=== PATIENT | male | born 1945 | race Hispanic/Latino ===

== ENCOUNTER → 2018-02-28 | Day surgery (SDC) | payer MEDICARE ==
[2018-02-27 12:30] LABS: BASOPHILS # (AUTO) 0.1 (0.0-0.1); BASOPHILS % 0.5 % (0.0-1.0); EOSINOPHILS # (AUTO) 0.1 (0.0-0.4); EOSINOPHILS % 0.6 % (0.0-6.0); HEMATOCRIT 40.1 % (38.2-49.6); HEMOGLOBIN 12.9 g/dL (14.0-18.0); LYMPHOCYTES # (AUTO) 1.7 (1.0-3.2); MEAN CORPUSCULAR HEMOGLOBIN 27.4 pg (28-32); MEAN CORPUSCULAR HGB CONC 32.2 g/dL (31-35); MEAN CORPUSCULAR VOLUME 85.1 fL (81-99); MONOCYTES # (AUTO) 1.1 (0.2-0.8); MONOCYTES % 10.4 % (4.4-11.3); NEUTROPHILS # (AUTO) 7.8 (2.1-6.9); PLATELET COUNT 266 x10e3/uL (140-360); RED BLOOD COUNT 4.71 x10e6/uL (4.3-5.7); RED CELL DISTRIBUTION WIDTH 14.7 % (11.7-14.4)
[2018-02-27 12:47] LABS: INR 1.17
[2018-02-27 12:54] LABS: ANION GAP 14.4 mmol/L (8-16); CALCIUM 9.9 mg/dL (8.4-10.2); CREATININE, SERUM 1.35 mg/dL (0.72-1.25); POTASSIUM 4.4 mmol/L (3.5-5.1)
--- NOTE | 2018-02-27 14:12 | Diagnostic Imaging Report ---
PROCEDURE: Frontal and lateral views of the chest. COMPARISON: None. 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 Lungs: The lungs are well inflated. Ill-defined patchy airspace opacity in the right upper lung and to a lesser degree right lower lung. The left lung is clear. Pleura: There is no pleural effusion or pneumothorax. Heart and mediastinum: Enlarged cardiac silhouette. Mild central pulmonary venous congestion. Atherosclerotic calcification of the aortic arch. Bones: No acute bony abnormalities. Degenerative changes in the thoracic spine. IMPRESSION: 1. ill-defined patchy opacities in the right upper and lower lung. These may represent pneumonia, in the appropriate clinical setting. Primary bronchogenic neoplasm is less likely, however, could be considered, particularly if the patient is high risk/history of smoking. No prior films are available for comparison. Recommend followup chest, PA and lateral 4-6 weeks after appropriate treatment. Alternatively, a contrast-enhanced chest CT may be obtained for further evaluation. 2. Enlarged heart silhouette with mild central pulmonary venous congestion. Leland Willett M.D. Dictated by: Leland Willett M.D. on 02/27/2018 at 14:15 Electronically approved by: Leland Willett M.D. on 02/27/2018 at 14:15
[~2018-02-28] VITALS: Ht 175.3 cm; Wt 99.8 kg
[~2018-02-28] MED LIST: AMIODARONE HCL200 MG PO; ASPIR 8181 MG PO; BUMETANIDE1 MG PO; CARVEDILOL12.5 MG PO; CILOSTAZOL100 MG PO; HUMALOG100 UNIT/3 SQ; LIDOCAINE 1% W/EPINEPHRINE 20 ML VIAL ONE; PRADAXA75 MG PO; TRESIBA SQ; VITAMIN B-121000 MCG PO; VITAMIN D10000 UNIT PO; VITAMIN D5000 UNIT PO
[2018-02-28 06:59] VITALS: BP 176/71
[2018-02-28 07:30] VITALS: BP 172/73
--- NOTE | 2018-02-28 07:59 | Operative Report ---
DATE OF PROCEDURE: February 28, 2018 PROCEDURE: Implantable loop recorder insertion. COMPLICATIONS: None. INDICATIONS: Paroxysmal atrial fibrillation. TECHNIQUE: The patient was draped and prepped in the usual fashion. The left subclavicular area was anesthetized with lidocaine. A loop recorder was inserted subcutaneously without difficulty. The incision was closed using Dura-Cronin glue. There were no complications. CONCLUSIONS: Successful insertion of implantable loop recorder without complications. Job#: [id number]
== END | disposition home or self-care (01) ==
LOC: CATH LAB 06:19
PROVIDERS: ATTEND Internal Medicine Cardiovascular Disease
DX: I48.0 Paroxysmal atrial fibrillation (principal); I10 Essential (primary) hypertension; E11.9 Type 2 diabetes mellitus without complications; Z01.810 Encounter for preprocedural cardiovascular examination; Z01.812 Encounter for preprocedural laboratory examination; Z01.818 Encounter for other preprocedural examination; Z79.82 Long term (current) use of aspirin; Z79.4 Long term (current) use of insulin; Z79.02 Long term (current) use of antithrombotics/antiplatelets; Z68.31 Body mass index [BMI] 31.0-31.9, adult; Z87.891 Personal history of nicotine dependence; Z82.49 Family history of ischemic heart disease and other diseases of the circulatory system
CPT/HCPCS: 33282; 36415; 71046; 80048; 85025; 85610; 93005; C1764

== ENCOUNTER 2020-07-19 14:59 | Emergency (ER) | payer MEDICARE ==
[~2020-07-19] VITALS: Ht 175.3 cm; Wt 99.8 kg
[~2020-07-19 14:59] MED LIST changes: -LIDOCAINE 1% W/EPINEPHRINE 20 ML VIAL ONE
--- NOTE | 2020-07-19 15:00 | NUR ---
DR. WINTER IN TRIAGE TALKING WITH PATIENT. WANTS PATIENT TO CONTINUE HIS CARE AND FOLLOW UP WITH DR. DOWELL FOR REFERAL TO WOUND CARE
--- NOTE | 2020-07-19 15:26 | NUR ---
CULTURAL LINK ROSITA Santiago ([id number])
--- NOTE | 2020-07-19 15:30 | Emergency Department Note ---
History of Present Illnes History of Present Illness Chief Complaint: Skin Rash or Abscess History of Present Illness This is a 74 year old male 3 AREAS OF ULCERATION TO FRONT OF LEFT LOWER LEG. STATES 10 DAYS AGO HE DROPPED A WOODEN FENCE ON IT. [address] DOWELL PRESCRIBED BACTROBAN OINTMENT TO THE AREA. 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 Any updates have been documented here. Past Medical History Recent Fever: No Clinical Suspicion of Infectio: No New/Unexplained Change in Ment: No Past Medical History: Hypertension, Diabetes, MA, CAD, Hyperlipedemia Other Surgery: CARDIAC STENT X 2 Social History Smoking Cessation: Never Smoker Counseling Performed: No Alcohol Use: Occasional Any Illegal Drug Use: No TB Exposure/Symptoms: No Physically hurt or threatened: No Family History Family history of heart diseas: No Other Any Pre-Existing Lines (PICC,: No Review of Systems Review of Systems Constitutional: Reports no symptoms EENTM: Reports no symptoms Cardiovascular: Reports no symptoms Respiratory: Reports no symptoms Gastrointestinal: Reports no symptoms Genitourinary: Reports no symptoms Musculoskeletal: Reports no symptoms Integumentary: Reports as per HPI Neurological: Reports no symptoms Psychological: Reports no symptoms Endocrine: Reports no symptoms Hematological/Lymphatic: Reports no symptoms Physical Exam Related Data Allergies: Coded Allergies: No Known Drug Allergies (Verified Allergy, Unknown, 02/27/18) Triage Vital Signs Vital Signs Date Time Temp Pulse Resp B/P (MAP) Pulse Ox O2 Delivery O2 Flow Rate FiO2 07/19/20 15:03 97.8 66 18 145/55 99 Room Air Vital signs reviewed: Yes Physical Exam CONSTITUTIONAL Constitutional: Present well-developed, Present well-nourished HENT HENT: Present normocephalic, Present atraumatic, Present oropharynx clear/moist, Present nose normal HENT L/R: Present left ext ear normal, Present right ext ear normal EYES Eyes: Reports PERRL, Reports conjunctivae normal NECK Neck: Present ROM normal PULMONARY Pulmonary: Present effort normal, Present breath sounds normal CARDIOVASCULAR Cardiovascular: Present regular rhythm, Present heart sounds normal, Present capillary refill normal, Present normal rate GASTROINTESTINAL Abdominal: Present soft, Present nontender, Present bowel sounds normal GENITOURINARY Genitourinary: Present exam deferred SKIN Skin: Present warm, Present other (MILD CELLULITIS LEFT LOWER LEG WITH 3 SMALL ULCERATIVE LESIONS ANT TIBIA AREA WITH NO PURULENT DS/C) MUSCULOSKELETAL Musculoskeletal: Present ROM normal NEUROLOGICAL Neurological: Present alert, Present oriented x 3, Present no gross motor or sensory deficits PSYCHOLOGICAL Psychological: Present mood/affect normal, Present judgement normal Assessment & Plan Medical Decision Making MDM MILD CELLULITIS Reassessment Reassessment DC HOME, CLINDA/DOXY, F/U PCP AND WOUND CARE CLINIC Assessment & Plan Final Impression: (1) Cellulitis (2) Non-healing wound Depart Disposition: HOME, SELF-CARE Last Vital Signs Date Time Temp Pulse Resp B/P (MAP) Pulse Ox O2 Delivery O2 Flow Rate FiO2 07/19/20 15:03 97.8 66 18 145/55 99 Room Air Home Meds Reported Medications Dabigatran Etexilate Mesylate (PRADAXA) 75 Mg Capsule, 75 MG PO BID 02/27/18 [Tresiba] No Conflict Check, 50 UNITS SQ HS 02/27/18 Insulin Lispro (HUMALOG) 100 Unit/1 Ml Insuln.pen, 10 UNITS SQ BID 02/27/18 Cyanocobalamin (VITAMIN B-12) 1,000 Mcg Tab, 500 MCG PO DAILY, #30 TAB 02/27/18 Cholecalciferol (Vitamin D3) (VITAMIN D) 10,000 Unit Capsule, 67736 UNITS PO UD 02/27/18 Cholecalciferol (Vitamin D3) (VITAMIN D) 5,000 Unit Tablet, 5000 UNIT PO 02/27/18 Carvedilol (CARVEDILOL) 12.5 Mg Tablet, 12.5 MG PO BID, #60 TAB 02/27/18 Cilostazol (CILOSTAZOL) 100 Mg Tablet, 100 MG PO BID, #30 TAB TAKE 1 TABLET 30 MINUTES BEFORE OR 2 HOURS AFTER BREAKFAST AND DINNER ORALLY TWICE A DAY 02/27/18 Aspirin (ASPIR 81) 81 Mg Tablet.dr, 81 MG PO DAILY 02/27/18 Amiodarone Hcl (AMIODARONE HCL) 200 Mg Tablet, 200 MG PO BID 02/27/18 Bumetanide (BUMETANIDE) 1 Mg Tablet, 1 MG PO DAILY, #30 TAB 02/27/18 RUBY WINTER MD Jul 19, 2020 15:30
--- OUTSIDE RECORDS SUMMARY | 2020-07-19 15:42 | XMS REPORT | Continuity of Care Document ---
Author Author [facility] t Organization [facility] Address [address] [place] [address] Phone Unavailable Care Team Providers Care Aging Room Hand Name Role Phone LAYA GARCIAchetnarashida Unavailable Payers Payer Name Policy Type Policy Number Effective Date Expiration Date S ource Problems Condition Name Condition Details Condition Category Status Onset Date Resolution Date Last Treatment Date Treating Clinician Comments Source [facility]entiary current use of insulin meterman current use of insulin Active Diagnosis 06/09/2017 [id number] Diagnosis Active 2017-06-09 02:48:02 Bandar Lambert Mixed hyperlipidemia Mixe d hyperlipidemia Active Problem 06/09/2017 [id number] Problem Active 2017-06-09 02:48:02 Gaby Lambert Type 2 diabetes mellitus without complic ation, 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 Type 2 diabetes mellitus without complication, 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 Active Diagnosis 06/09/2017 [id number] Diagnosis Active 2017-06-09 02:48:02 Gaby Lambert Heart failure, unspecified heart failure chronicity, unspecified heart failure type Heart failure, u nspecified heart failure chronicity, unspecified heart failure type Active Problem 06/09/2017 [id number] Problem Active 2017-06-09 02:48:02 Gaby Lambert 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 Active Problem 06/09/2017 [id number] Problem Active 2017-06-09 02:48:02 [facility] Chronic systolic heart failure Chronic systolic heart failure Active Problem 06/09/2017 [id number] Problem Active 2017-06-09 02:48:02 [facility] HTN (hypertension), benign HTN (hypertension), benign Active Problem 06/09/2017 [id number] Problem Active 2017-06-09 02:48:02 [facility] Atrial fibrillation, unspecified type Atrial fibrillation, unspecified type Active Problem 06/09/2017 [id number] Problem Active 2017-06-09 02:48:02 Juan arita [facility] Allergies, Adverse Reactions, Alerts Allergy Name Allergy Type Status Severity Reaction(s) Onset Date Inacti ve Date Treating Clinician Comments Source No Known Allergies DA Active U 2018-04-24 00:00:00 [facility] N.K.D.A. N.K.D.A. Active Info Not Available 2017-05-24 00:00:00 [facility] Medications Ordered Medication Name Filled Medication Name Start Date Stop Da te Current Medication? Ordering Clinician Indication Dosage Frequency Signature (SIG) Comments Components Source Humalog 2017-06-09 02:48:02 Yes Adnan Brien Injec t 15u [facility] Aspir-81 2017-06-09 02:48:02 Yes Adnan Brien 1 ta blet [facility] Pravastatin Sodium 2017-06-09 02:48:02 Yes Adnan Brien 1 tablet [facility] Amiodarone HCl 2017-06-09 02:48:02 Yes Adnan Brien 1 tablet [facility] Carvedilol 2017-06-09 02:48:02 Yes Adnan Brien 1 tablet [facility] Vitamin B12 2017-06-09 02:48:02 Yes Adnan Brien 2 tablets [facility] Vitamin D3 2017-06-09 02:48:02 Yes Adnan Brien 1 capsule [facility] Bumetanide 2017-06-09 02:48:02 Yes Adnan Brien 1 tablet [facility] Tresiba FlexTouch 2017-06-09 02:48:02 Yes Adnan Brien Inject 60u [facility] Eliquis 2017-05-24 00:00:00 Yes Adnan Brien 1 tab let [facility] Vital Signs Vital Name Observation Time Observation Value Comments Source Weight 2017-05-24 15:15:00 [facility] Height 2017-05-24 15:15:00 [facility] Temperature Oral (F) 2017-05-24 15:15:00 98.1 F [facility] Heart Rate 2017-05-24 15:15:00 [facility] Diastolic (mm Hg) 2017-05-24 15:15:00 [facility] Systolic (mm Hg) 2017-05-24 15:15:00 [facility] Procedures This patient has no known procedures. Encounters Start Date/Time End Date/Time Encounter Type Admission Type [facility] Care Department Encounter ID Source 2017-05-24 10:15:00 2017-05-24 10:15:00 Outpatient [facility] [id number] [employer] Results Test Description Test Time Test Comments Results Result Comments Source CHEST 2 VIEWS 2018-02-27 14:15:00 [place] [id number] Patient Name: TONI RUIZ MR #: [id number] : 1945 Age/Sex: 72/M Req #: [id number] Adm Physician: Ordered by: LAYA GARCIA MD Report #: [id number] Location: BLOCK CLEANER Room/Bed: Procedure: [id number] DX/CHEST 2 VIEWS Exam Date: 02/27/18 Exam Time: 1325 REPORT STATUS: Signed PROCEDURE: Frontal and lateral views of the chest. COMPARISON: None. 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 Lungs: The lungs are well inflated. Ill-defined patchy airspace opacity in the right upper lung and to a lesser degree right lower lung. The left lung is clear. Pleura: There is no pleural effusion or pneumothorax. Heart and mediastinum: Enlarged cardiac silhouette. Mild central pulmonary venous congestion. Atherosclerotic calcification of the aortic arch. Bones: No acute bony abnormalities. Degenerative changes in the thoracic spine. IMPRESSION: 1. ill- defined patchy opacities in the right upper and lower lung. These may represent pneumonia, in the appropriate clinical setting. Primary bronchogen ic neoplasm is less likely, however, could be considered, particularly if the patient is high risk/history of smoking. No prior films are available for comparison. Recommend followup chest, PA and lateral 4-6 weeks after appropriate treatment. Alternatively, a contrast-enhanced chest CT may be obtained for further evaluation. 2. Enlarged heart silhouette with mild central pulmonary venous congestion. Babatunde Willett M.D. Dictated by: Babatunde Willett M.D. on 02/27/2018 at 14:15 Electronically approved by: Babatunde Willett M.D. on 02/27/2018 at 14:15 Dictated By: BABATUNDE WILLETT MD 1415 Transcribed By: EVETTE on 02/27/18 1415 COPY TO: LAYA GARCIA MD
--- OUTSIDE RECORDS SUMMARY | 2020-07-19 15:42 | XMS REPORT | Continuity of Care Document ---
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16.840.1.684192.4.391.11.2 2568 HTN (hypertension), benign Act maggie Problem 02/2017 2.16.840.1.252222.4.391.11.2 2568 Atrial fibrillation, unspecified type Active Problem 02/2017 2.16.840.1.044952.4.391.11.2 2568 Medications Medication Details Route Status Patient Instructions Ordering Provider Order Date Source Eliquis 1 tablet Orally Active 5 MG Orally twice a day (bid) Brien 05/24/2017 2.16.840.1.235142.4.391.11.36128 Humalog Inject 15u Subcutaneous Active 100 UNIT/ML Subcutaneou s tid before meals Brien 2.16.840.1.434873.4.391..14996 Aspir-81 1 tablet Orally Active 81 MG Orally Once a day Brien .840.1.661072.4.391.. Pravastatin Sodium 1 tablet Orally Active 20 MG Orally Once a day Brien 2.840.1.393712.4.391.. Amiodarone HCl 1 tablet Orally Active 400 MG Orally Once a da y Brien 2.840.1.645672.4.391.. Carvedilol 1 tablet Orally Active 6.25 MG Orally twice a day (bid) Brien 2.840.1.755309.4.391.. Vitamin B12 2 tablets Orally Active 500 MCG Orally Once a d ay Brien 2.840.1.760056.4.391.. Vitamin D3 1 capsule Orally Active 5000 UNIT Orally Once a day Brien .840.1.899051.4.391. Bumetanide 1 tablet Orally Active 1 MG Orally twice a day (bid) Brien 2.840.1.470376.4.391.. Tresiba FlexTouch Inject 60u Subcutaneous Active 200 UNIT/ML Subcutaneous daily Brien 2.840.1.541593.4.391..76770 Allergies, Adverse Reactions, Alerts Substance Category Reaction Severity Reaction type Status Date Reported Comments Source N.K.D.A. Adverse Reaction Info Not Available Adverse Reaction Active 05/24/2017.840.1.097749.4.391.11.2 2568 Immunizations No Data Provided for This Section Results No Data Provided for This Section Pathology Reports No Data Provided for This Section Diagnostic Reports No Data Provided for This Section Consultation Notes No Data Provided for This Section Discharge Summaries No Data Provided for This Section History and Physicals No Data Provided for This Section Vital Signs Vital Sign Value Date Comments Source Weight 201 05/24/2017 2.840.1.506760.4.391.11.2 2568 Height 67.0 05/24/2017 2.840.1.984343.4.391.11.2 2568 Temperature Oral (F) 98.1 F 05/24/2017 2.16.840.1.345513.4.391.11.41307 Heart Rate 67 05/24/2017 2.16.840.1.836601.4.391.11.2 2568 Diastolic (mm Hg) 52 05/24/2017 2.16.840.1.408044.4.391.11.22480 Systolic (mm Hg) 96 05/24/2017 2.16.840.1.837746.4.391.11.2 2568 Encounters No Data Provided for This Section Procedures No Data Provided for This Section Assessment and Plan No Data Provided for This Section Plan of Care No Data Provided for This Section Social History No Data Provided for This Section Family History No Data Provided for This Section Advance Directives No Data Provided for This Section Functional Status No Data Provided for This Section
== END 2020-07-19 15:23 | disposition home or self-care (01) ==
LOC: ER 15:15
DX: L03.116 Cellulitis of left lower limb (principal); S81.802D Unspecified open wound, left lower leg, subsequent encounter; W22.8XXD Striking against or struck by other objects, subsequent encounter; I10 Essential (primary) hypertension; E11.9 Type 2 diabetes mellitus without complications; E78.5 Hyperlipidemia, unspecified; I25.10 Atherosclerotic heart disease of native coronary artery without angina pectoris; I25.2 Old myocardial infarction
CPT/HCPCS: 99282

== ENCOUNTER 2023-12-27 14:37 | Inpatient (IN) | payer MEDICARE ==
[~2023-12-27] VITALS: Ht 177.8 cm; Wt 97.5 kg
[~2023-12-27 14:37] MED LIST changes: +CEFDINIR300 MG PO
[2023-12-27] MEDS ORDERED: SODIUM CHLORIDE FLUSH 10 ML SYR IV PRN (15:15)
[2023-12-27 15:20] LABS: BASOPHILS % 0.4 % (0.0-1.0); EOSINOPHILS # (AUTO) 0.1 (0.0-0.4); EOSINOPHILS % 1.5 % (0.0-6.0); HEMATOCRIT 37.5 % (38.2-49.6); HEMOGLOBIN 12.2 g/dL (14.0-18.0); LYMPHOCYTES # (AUTO) 2.7 (1.0-3.2); LYMPHOCYTES % 28.5 % (18.0-39.1); MEAN CORPUSCULAR HEMOGLOBIN 27.2 pg (28-32); MEAN CORPUSCULAR HGB CONC 32.5 g/dL (31-35); MEAN CORPUSCULAR VOLUME 83.5 fL (81-99); MONOCYTES # (AUTO) 0.8 (0.2-0.8); MONOCYTES % 8.5 % (4.4-11.3); NEUTROPHILS # (AUTO) 5.7 (2.1-6.9); NEUTROPHILS % 60.9 % (38.7-80.0); PLATELET COUNT 244 x10e3/uL (140-360); RED BLOOD COUNT 4.49 x10e6/uL (4.3-5.7); RED CELL DISTRIBUTION WIDTH 15.7 % (11.7-14.4); WHITE BLOOD COUNT 9.42 x10e3/uL (4.8-10.8)
[2023-12-27 15:37] LABS: INR 0.95; PROTHROMBIN TIME 13.4 seconds (11.9-14.5)
[2023-12-27 15:38] LABS: PARTIAL THROMBOPLASTIN TIME 34.3 seconds (23.8-35.5)
[2023-12-27 15:48] LABS: ALBUMIN 3.7 g/dL (3.5-5.0); ALBUMIN/GLOBULIN RATIO 0.9 (0.8-2.0); ANION GAP 14.8 mmol/L (8-16); BILIRUBIN,TOTAL 0.6 mg/dL (0.2-1.2); CALCIUM 9.1 mg/dL (8.4-10.2); CREATININE, SERUM 1.41 mg/dL (0.72-1.25); POTASSIUM 4.8 mmol/L (3.5-5.1); TOTAL PROTEIN 7.7 g/dL (6.5-8.1)
[2023-12-27 15:54] LABS: TROPONIN I 0.007 ng/mL (0-0.300)
[2023-12-27] MEDS ORDERED: ASPIRIN 81 MG ENTERIC COATED PO ONE (16:24)
[2023-12-27] MEDS: ASPIRIN 81 MG CHEW TAB PO ONE (16:26)
[2023-12-27] MEDS ORDERED: ASPIRIN 81 MG CHEW TAB ONE (16:28)
[2023-12-27] MEDS ORDERED: SODIUM CHLORIDE 0.9% 100 ML ONE (16:32)
[2023-12-27] MEDS ORDERED: IOPAMIDOL 370 MG/ML 100 ML INFUS..BTL INJ ONE (16:33)
[2023-12-27] MEDS ORDERED: ONDANSETRON HCL INJ 2MG/ML 2ML 2 MG/ML VIAL IV PRN (17:45)
[2023-12-27] MEDS ORDERED: SODIUM CHLORIDE FLUSH 10 ML SYR INJ PRN (17:45)
[2023-12-27] MEDS ORDERED: CLOPIDOGREL BISULFATE 75 MG TAB ONE (19:03)
[2023-12-27] MEDS: CLOPIDOGREL BISULFATE 75 MG TAB PO ONE (19:05)
[2023-12-27 20:34] VITALS: BP 165/44; PULSE 70; RESP 20; TEMP 98; O2SAT 100
[2023-12-27 21:00] VITALS: BP 176/68; PULSE 70; RESP 20; TEMP 98; O2SAT 97
[2023-12-27 22:30] VITALS: BP 165/44; PULSE 70; RESP 20; TEMP 98; O2SAT 100
[2023-12-28] VITALS (9 sets, daily range): BP systolic 146–181; BP diastolic 47–65; PULSE 53–63; RESP 18–20; TEMP 97.7–98.4; O2SAT 98–100
[2023-12-28] MEDS ORDERED: ACETAMINOPHEN 325 MG TAB PO PRN (02:30)
[2023-12-28] MEDS ORDERED: MAGNESIUM/ALUMINUM/SIMETHICONE 30 ML UDC PO PRN (02:30)
[2023-12-28] MEDS ORDERED: DOCUSATE SODIUM 100 MG CAP PO PRN (02:30)
[2023-12-28] MEDS ORDERED: MELATONIN 3 MG TAB PO PRN (02:30)
[2023-12-28] MEDS ORDERED: GUAIFENESIN/DEXTROMETHORPHAN LIQD 5 ML UDC PO PRN (02:30)
[2023-12-28] MEDS ORDERED: SODIUM CHLORIDE 0.9% 1000ML 1,000 ML ONE ×2 (05:20→20:39)
[2023-12-28] MEDS: SODIUM CHLORIDE 0.9% 1000ML 1,000 ML IV SCH (05:33)
[2023-12-28 06:02] LABS: BASOPHILS % 0.4 % (0.0-1.0); EOSINOPHILS # (AUTO) 0.1 (0.0-0.4); EOSINOPHILS % 1.8 % (0.0-6.0); HEMOGLOBIN 11.4 g/dL (14.0-18.0); LYMPHOCYTES # (AUTO) 1.8 (1.0-3.2); LYMPHOCYTES % 27.2 % (18.0-39.1); MEAN CORPUSCULAR HEMOGLOBIN 26.9 pg (28-32); MEAN CORPUSCULAR HGB CONC 32.6 g/dL (31-35); MEAN CORPUSCULAR VOLUME 82.5 fL (81-99); MONOCYTES # (AUTO) 0.6 (0.2-0.8); MONOCYTES % 9.4 % (4.4-11.3); NEUTROPHILS # (AUTO) 4.1 (2.1-6.9); NEUTROPHILS % 60.9 % (38.7-80.0); PLATELET COUNT 232 x10e3/uL (140-360); RED BLOOD COUNT 4.24 x10e6/uL (4.3-5.7); RED CELL DISTRIBUTION WIDTH 15.6 % (11.7-14.4)
[2023-12-28 06:41] LABS: ALBUMIN 3.4 g/dL (3.5-5.0); ANION GAP 14.2 mmol/L (8-16); BILIRUBIN,TOTAL 0.7 mg/dL (0.2-1.2); CALCIUM 9.3 mg/dL (8.4-10.2); CREATININE, SERUM 1.22 mg/dL (0.72-1.25); POTASSIUM 4.2 mmol/L (3.5-5.1); TOTAL PROTEIN 6.9 g/dL (6.5-8.1)
[2023-12-28 07:09] LABS: CHOL/HDL RATIO 3.1 (3.9-4.7)
[2023-12-28] MEDS: CARVEDILOL 12.5 MG TAB PO SCH (08:00)
[2023-12-28] MEDS ORDERED: AMIODARONE HCL 200 MG TAB ONE ×2 (08:57→17:47)
[2023-12-28] MEDS ORDERED: CILOSTAZOL 100 MG TAB ONE (08:57)
[2023-12-28] MEDS ORDERED: BUMETANIDE 1 MG TAB ONE (08:57)
[2023-12-28] MEDS ORDERED: ASPIRIN 81 MG ENTERIC COATED PO ONE (08:57)
[2023-12-28] MEDS ORDERED: MULTIVITAMINS/MINERALS TAB ONE (08:58)
[2023-12-28] MEDS ORDERED: CARVEDILOL 12.5 MG TAB ONE (08:58)
[2023-12-28] MEDS ORDERED: DABIGATRAN ETEXILATE 75 MG CAP ONE (08:58)
[2023-12-28] MEDS: AMIODARONE HCL 200 MG TAB PO SCH (10:21)
[2023-12-28] MEDS: MULTIVITAMINS/MINERALS TAB PO SCH (10:22)
[2023-12-28] MEDS: CILOSTAZOL 100 MG TAB PO SCH (10:22)
[2023-12-28] MEDS: BUMETANIDE 1 MG TAB PO SCH (10:22)
[2023-12-28] MEDS: DABIGATRAN ETEXILATE 75 MG CAP PO SCH (10:22)
[2023-12-28] MEDS: ASPIRIN 81 MG ENTERIC COATED PO SCH (10:23)
[2023-12-28] MEDS ORDERED: DEXTROSE 50% SYRINGE 50 ML IV PRN (13:00)
[2023-12-28] MEDS ORDERED: ENOXAPARIN SOD INJ 40 MG/0.4 ML SYR SC SCH (17:00)
[2023-12-28] MEDS ORDERED: APIXABAN 5 MG TABLET ONE ×2 (17:47→17:48)
[2023-12-28] MEDS: APIXABAN 5 MG TABLET PO SCH (17:53)
[2023-12-28] MEDS: INSULIN REGULAR, HUMAN 100 UNIT/1 ML SQ SCH (17:57)
[2023-12-28] MEDS: ATORVASTATIN 40 MG TAB PO SCH (20:36)
[2023-12-28] MEDS ORDERED: ATORVASTATIN 40 MG TAB ONE (20:38)
[2023-12-29] VITALS (7 sets, daily range): BP systolic 135–184; BP diastolic 43–62; PULSE 52–61; RESP 17–18; TEMP 97.5–97.9; O2SAT 97–100
[2023-12-29] MEDS ORDERED: AMIODARONE HCL 200 MG TAB ONE (08:02)
[2023-12-29] MEDS ORDERED: MULTIVITAMINS/MINERALS TAB ONE (08:03)
[2023-12-29] MEDS ORDERED: ASPIRIN 81 MG ENTERIC COATED PO ONE (08:03)
[2023-12-29] MEDS ORDERED: BUMETANIDE 1 MG TAB ONE (08:03)
[2023-12-29] MEDS ORDERED: CARVEDILOL 12.5 MG TAB ONE (08:04)
[2023-12-29] MEDS ORDERED: INSULIN REGULAR, HUMAN 100 UNIT/1 ML ONE (08:04)
[2023-12-29] MEDS ORDERED: APIXABAN 5 MG TABLET ONE (08:04)
[2023-12-29] MEDS ORDERED: SODIUM CHLORIDE 0.9% 1000ML 1,000 ML ONE (08:04)
[2023-12-29] MEDS ORDERED: ONDANSETRON HCL 4 MG ORAL DISINTEGRATING TAB PO PRN (10:45)
[2023-12-29] MEDS: HYDRALAZINE HCL 20 MG/ML VIAL IV PRN (17:17)
[2023-12-29] MEDS ORDERED: ELIQUIS5 MG PO (21:34)
[2023-12-29] MEDS ORDERED: K DUR10 MEQ PO (21:42)
[2023-12-29] MEDS ORDERED: ATORVASTATIN CA40 MG PO (21:50)
== END 2023-12-29 22:42 | disposition home or self-care (01) | DRG 123 ==
LOC: ER 15:00 → ERHOLD 17:44 → MED/SURG3 20:45 → OBSVTOIN 12-28 11:41
PROVIDERS: ADMIT Internal Medicine Critical Care Medicine; ATTEND Internal Medicine Critical Care Medicine
DX: H53.411 Scotoma involving central area, right eye (principal); H34.11 Central retinal artery occlusion, right eye; I12.9 Hypertensive chronic kidney disease with stage 1 through stage 4 chronic kidney disease, or unspecified chronic kidney disease; I65.9 Occlusion and stenosis of unspecified precerebral artery; I65.03 Occlusion and stenosis of bilateral vertebral arteries; E11.22 Type 2 diabetes mellitus with diabetic chronic kidney disease; E11.51 Type 2 diabetes mellitus with diabetic peripheral angiopathy without gangrene; N18.9 Chronic kidney disease, unspecified; I25.10 Atherosclerotic heart disease of native coronary artery without angina pectoris; I16.0 Hypertensive urgency; I48.0 Paroxysmal atrial fibrillation; E78.5 Hyperlipidemia, unspecified; Z79.4 Long term (current) use of insulin; E66.01 Morbid (severe) obesity due to excess calories; Z68.30 Body mass index [BMI] 30.0-30.9, adult; Z79.82 Long term (current) use of aspirin; Z79.01 Long term (current) use of anticoagulants; I25.2 Old myocardial infarction; Z95.5 Presence of coronary angioplasty implant and graft; T45.516A Underdosing of anticoagulants, initial encounter; Z91.128 Patient's intentional underdosing of medication regimen for other reason; Z87.891 Personal history of nicotine dependence
CPT/HCPCS: 36415; 70450; 70496; 70498; 70551; 71045; 80053; 80061; 82948; 83880; 84484; 85025; 85610; 85730; 93005; 94760; 99284; G0378; J0360; J7030; J7050; Q9967; U0002